=== PATIENT | female | born 1975 | race Two or more races ===

== ENCOUNTER 2025-04-14 15:11 | Outpatient (CLI) | payer OTHER | END 2025-04-14 15:17 | disposition home or self-care (01) | LOC: SONOGRAMA 15:11 | PROVIDERS: ATTEND Specialist | DX: D17.1 Benign lipomatous neoplasm of skin and subcutaneous tissue of trunk (principal) ==

== ENCOUNTER 2025-06-03 10:00 | Day surgery (SDC) | payer OTHER ==
[2025-05-26 14:34] VITALS: BP 126/84
[~2025-06-03] VITALS: Ht 167.6 cm; Wt 65.8 kg
[~2025-06-03 10:00] MED LIST: SYNTHROID50 MCG PO
[2025-06-03] MEDS ORDERED: CEFAZOLIN SODIUM 1,000 MG VIAL ONE ×2 (11:34→15:34)
[2025-06-03] MEDS ORDERED: LIDOCAINE HCL 1%/EPINEPHRINE 20ML VIAL IJ ONE (14:45)
[2025-06-03] MEDS ORDERED: LIDOCAINE HCL 1% 20 ML VIAL IJ ONE (14:45)
[2025-06-03] MEDS ORDERED: CEFAZOLIN SODIUM 1,000 MG VIAL IV SCH (15:15)
[2025-06-03 22:44] VITALS: BP 141/62; O2SAT 100
== END 2025-06-03 16:45 | disposition home or self-care (01) ==
LOC: CIR.AMB 10:00
PROVIDERS: ATTEND Specialist
DX: D17.1 Benign lipomatous neoplasm of skin and subcutaneous tissue of trunk (principal)